=== PATIENT | male | born 2000 | race Caucasian/White ===

== ENCOUNTER 2020-01-12 20:52 | Inpatient (IN) | payer OTHER ==
[~2020-01-12] VITALS: Ht 172.7 cm; Wt 65.9 kg
[2020-01-12] MEDS ORDERED: PERCT PO (21:07)
[2020-01-12] MEDS ORDERED: GABA-531 PO (21:07)
[2020-01-12] MEDS ORDERED: VORI200 PO (21:07)
[2020-01-12] MEDS ORDERED: AMOX-429 PO (21:07)
[2020-01-12 23:04] LABS: BASOPHILS % (AUTO) 0.7 % (0.0-2.0); EOSINOPHILS % (AUTO) 1.5 % (1.0-6.0); HEMATOCRIT 23.6 % (41-53); HEMOGLOBIN 8.1 g/dL (13.5-17.5); LYMPHOCYTES # (AUTO) 1.5 K/uL (1.0-4.8); LYMPHOCYTES % (AUTO) 23.1 % (22.0-44.0); MEAN CORPUSCULAR HGB CONC 34.2 G/dL (31.0-37.0); MEAN CORPUSCULAR VOLUME 91 fL (80-100); MONOCYTES # (AUTO) 0.8 K/uL (0.1-1.0); MONOCYTES % (AUTO) 12.1 % (2.0-9.0); NEUTROPHILS % (AUTO) 62.6 % (40.0-70.0); PLATELET COUNT (AUTO) 353 K/uL (150-450); RED BLOOD CELL COUNT(AUTO) 2.61 MIL/uL (4.50-5.90); RED CELL DISTRIBUTION WIDTH 14.2 % (11.5-14.5)
[2020-01-12 23:11] LABS: ANION GAP 9 mmol/L (8-16); CALCIUM, TOTAL 8.9 mg/dL (8.8-10.5); CARBON DIOXIDE 26 mmol/L (22-29); CHLORIDE 102 mmol/L (98-107); CREATININE 0.97 mg/dL (0.60-1.30); GLOMERULAR FILTR. RATE CALC > 60 mL/min (>60); GLUCOSE,RANDOM 100 mg/dL (70-110); POTASSIUM 3.9 mmol/L (3.5-5.1); SODIUM SERUM 137 mmol/L (136-145); UREA NITROGEN, BLOOD 18 mg/dL (7-18)
[2020-01-12] MEDS ORDERED: OxyCODONE HCL/ACETAMINOPHEN 5-325 MG TABLET PO ONE (23:15)
[2020-01-12] MEDS ORDERED: ONDANSETRON HCL 4 MG/2 ML VIAL IVP PRN ×2 (23:15→23:30)
[2020-01-12] MEDS ORDERED: GABAPENTIN 100 MG CAPSULE PO ONE (23:15)
[2020-01-12] MEDS ORDERED: AMOX TR/POT CLAV 875 MG/125 MG TABLET PO ONE (23:15)
[2020-01-12] MEDS ORDERED: VORICONAZOLE 200 MG TABLET PO ONE (23:15)
[2020-01-12] MEDS ORDERED: 0.9% SODIUM CHLORIDE 10 ML SYRINGE IVP PRN ×2 (23:15→23:30)
[2020-01-12] MEDS ORDERED: ACETAMINOPHEN 325 MG TABLET PO PRN ×2 (23:15→23:30)
[2020-01-12] MEDS ORDERED: MAGNESIUM SULFATE 2 GM/WATER 50 ML IV PRN (23:30)
[2020-01-12] MEDS ORDERED: MAGNESIUM SULFATE 4 GM/WATER 100 ML IV PRN (23:30)
[2020-01-12] MEDS ORDERED: POTASSIUM CHL 10 MEQ/WATER 50 ML IV PRN (23:30)
[2020-01-12] MEDS ORDERED: POTASSIUM CHLORIDE 20 MEQ ER TABLET PO PRN (23:30)
[2020-01-12] MEDS ORDERED: MAGNESIUM OXIDE 400 MG TABLET PO PRN (23:30)
[2020-01-13] MEDS: ZOLPIDEM TARTRATE 5 MG TABLET PO PRN ×2 (00:03→20:03)
[2020-01-13] MEDS: HEPARIN SODIUM,PORCINE 5,000 UNITS/ML VIAL SQ SCH ×3 (00:05→16:03)
[2020-01-13 00:17] VITALS: BP 114/83
[2020-01-13] MEDS ORDERED: INFLUENZA VIRUS VACCINE QVS 2019-20 (3YR+)/PF 60 MCG/0.5 ML SYRINGE IM ONE (01:15)
[2020-01-13 05:01] VITALS: BP 120/81
[2020-01-13 07:40] VITALS: BP 119/71
[2020-01-13 08:07] LABS: BASOPHILS % (AUTO) 0.7 % (0.0-2.0); EOSINOPHILS % (AUTO) 1.5 % (1.0-6.0); HEMATOCRIT 25.7 % (41-53); HEMOGLOBIN 8.7 g/dL (13.5-17.5); LYMPHOCYTES # (AUTO) 1.4 K/uL (1.0-4.8); MEAN CORPUSCULAR HEMOGLOBIN 30.6 pg (26.0-34.0); MEAN CORPUSCULAR HGB CONC 33.8 G/dL (31.0-37.0); MEAN CORPUSCULAR VOLUME 91 fL (80-100); MONOCYTES # (AUTO) 0.7 K/uL (0.1-1.0); MONOCYTES % (AUTO) 11.7 % (2.0-9.0); NEUTROPHILS # (AUTO) 4.1 K/uL (1.8-7.7); NEUTROPHILS % (AUTO) 64.1 % (40.0-70.0); PLATELET COUNT (AUTO) 389 K/uL (150-450); RED BLOOD CELL COUNT(AUTO) 2.83 MIL/uL (4.50-5.90); RED CELL DISTRIBUTION WIDTH 14.3 % (11.5-14.5)
[2020-01-13] MEDS: PANTOPRAZOLE SODIUM 40 MG DR TABLET PO SCH (08:24)
[2020-01-13] MEDS: DOCUSATE SODIUM 100 MG CAPSULE PO SCH ×2 (08:24→20:03)
[2020-01-13 08:30] LABS: ANION GAP 9 mmol/L (8-16); CALCIUM, TOTAL 9.3 mg/dL (8.8-10.5); CARBON DIOXIDE 26 mmol/L (22-29); CHLORIDE 103 mmol/L (98-107); CREATININE 1.01 mg/dL (0.60-1.30); GLOMERULAR FILTR. RATE CALC > 60 mL/min (>60); GLUCOSE,RANDOM 101 mg/dL (70-110); POTASSIUM 3.8 mmol/L (3.5-5.1); SODIUM SERUM 138 mmol/L (136-145); UREA NITROGEN, BLOOD 14 mg/dL (7-18)
[2020-01-13 15:20] VITALS: BP 118/62
[2020-01-13 19:48] VITALS: BP 130/93
[2020-01-13] MEDS ORDERED: HALOPERIDOL LACTATE 5 MG/ML VIAL IM PRN (22:30)
[2020-01-13] MEDS ORDERED: LORazepam 2 MG/ML VIAL IM ONE (22:45)
[2020-01-13] MEDS ORDERED: DiphenhydrAMINE HCL 50 MG/ML VIAL IM ONE (22:45)
[2020-01-13] MEDS ORDERED: HALOPERIDOL 5 MG TABLET PO PRN (22:45)
[2020-01-13] MEDS ORDERED: HALOPERIDOL LACTATE 5 MG/ML VIAL IM ONE (22:45)
[2020-01-13 22:50] LABS: ALBUMIN 2.9 g/dL (3.4-5.0)
[2020-01-14] MEDS: PANTOPRAZOLE SODIUM 40 MG DR TABLET PO SCH (08:02)
[2020-01-14] MEDS: DOCUSATE SODIUM 100 MG CAPSULE PO SCH (08:02)
[2020-01-14] MEDS: HEPARIN SODIUM,PORCINE 5,000 UNITS/ML VIAL SQ SCH ×3 (08:03→16:00)
[2020-01-14] MEDS ORDERED: MULTIVITAMINS WITH MINERALS, THERAPEUTIC TABLET PO SCH (09:00)
== END 2020-01-14 20:50 | DRG 159 ==
LOC: EMS 20:55 → 6S 23:00
PROVIDERS: ADMIT Internal Medicine; ATTEND Internal Medicine
DX: S02.66XA Fracture of symphysis of mandible, initial encounter for closed fracture (principal); S62.101A Fracture of unspecified carpal bone, right wrist, initial encounter for closed fracture; G89.18 Other acute postprocedural pain; R63.3 Feeding difficulties; R62.7 Adult failure to thrive; F17.210 Nicotine dependence, cigarettes, uncomplicated; F43.21 Adjustment disorder with depressed mood; F12.90 Cannabis use, unspecified, uncomplicated; Z79.899 Other long term (current) drug therapy; Z68.22 Body mass index [BMI] 22.0-22.9, adult; Y08.89XA Assault by other specified means, initial encounter; Y93.89 Activity, other specified; Y92.89 Other specified places as the place of occurrence of the external cause; Y99.8 Other external cause status
CPT/HCPCS: 70486; 83735; J1200; J1630; J1644; J2060

== ENCOUNTER 2020-01-15 12:54 | Inpatient (IN) | payer OTHER ==
[~2020-01-15] VITALS: Ht 167.6 cm; Wt 59.1 kg
[~2020-01-15 12:54] MED LIST: AMOX-429 PO; GABA-531 PO; PERCT PO; VORI200 PO
[2020-01-15] MEDS ORDERED: HALOPERIDOL LACTATE 5 MG/ML VIAL IM ONE ×2 (15:00→17:30)
[2020-01-15] MEDS ORDERED: ACETAMINOPHEN 325 MG TABLET PO PRN (15:15)
[2020-01-15] MEDS ORDERED: 0.9% SODIUM CHLORIDE 10 ML SYRINGE IVP PRN (15:15)
[2020-01-15 15:24] LABS: BASOPHILS % (AUTO) 0.8 % (0.0-2.0); EOSINOPHILS % (AUTO) 1.4 % (1.0-6.0); HEMATOCRIT 25.6 % (41-53); HEMOGLOBIN 8.8 g/dL (13.5-17.5); LYMPHOCYTES # (AUTO) 1.5 K/uL (1.0-4.8); LYMPHOCYTES % (AUTO) 24.5 % (22.0-44.0); MEAN CORPUSCULAR HEMOGLOBIN 30.8 pg (26.0-34.0); MEAN CORPUSCULAR HGB CONC 34.2 G/dL (31.0-37.0); MEAN CORPUSCULAR VOLUME 90 fL (80-100); MONOCYTES # (AUTO) 0.8 K/uL (0.1-1.0); MONOCYTES % (AUTO) 12.4 % (2.0-9.0); NEUTROPHILS # (AUTO) 3.7 K/uL (1.8-7.7); NEUTROPHILS % (AUTO) 60.9 % (40.0-70.0); PLATELET COUNT (AUTO) 400 K/uL (150-450); RED BLOOD CELL COUNT(AUTO) 2.84 MIL/uL (4.50-5.90); RED CELL DISTRIBUTION WIDTH 14.4 % (11.5-14.5)
[2020-01-15] MEDS ORDERED: HALOPERIDOL LACTATE 5 MG/ML VIAL IM PRN (15:30)
[2020-01-15 15:36] LABS: ANION GAP 12 mmol/L (8-16); CALCIUM, TOTAL 8.8 mg/dL (8.8-10.5); CARBON DIOXIDE 24 mmol/L (22-29); CHLORIDE 99 mmol/L (98-107); CREATININE 1.15 mg/dL (0.60-1.30); GLOMERULAR FILTR. RATE CALC > 60 mL/min (>60); GLUCOSE,RANDOM 85 mg/dL (70-110); POTASSIUM 3.7 mmol/L (3.5-5.1); SODIUM SERUM 135 mmol/L (136-145); UREA NITROGEN, BLOOD 20 mg/dL (7-18)
[2020-01-15 15:50] LABS: ALANINE AMINOTRANSFERASE 74 U/L (12-78); ALBUMIN 3.2 g/dL (3.4-5.0); ALKALINE PHOSPHATASE 96 U/L (46-116); ASPARTATE AMINOTRANSFERASE 97 U/L (15-37); BILIRUBIN,TOTAL 0.5 mg/dL (0.1-1.0); TOTAL PROTEIN, SERUM 7.6 g/dL (6.4-8.2)
[2020-01-15] MEDS ORDERED: LORazepam 2 MG/ML VIAL IM ONE (17:30)
[2020-01-15] MEDS ORDERED: LORazepam 2 MG/ML VIAL ONE (17:30)
[2020-01-15] MEDS ORDERED: DiphenhydrAMINE HCL 50 MG/ML VIAL IM ONE (17:30)
[2020-01-15] MEDS ORDERED: DiphenhydrAMINE HCL 50 MG/ML VIAL ONE (17:30)
[2020-01-15] MEDS: FERROUS SULFATE 325 MG EC TABLET PO SCH (18:00)
[2020-01-15] MEDS ORDERED: AMOX TR/POT CLAV 500 MG/125 MG TABLET PO SCH (21:00)
[2020-01-15] MEDS: AMOX TR/POT CLAV 875 MG/125 MG TABLET PO SCH (22:01)
[2020-01-15] MEDS: DOCUSATE SODIUM 100 MG CAPSULE PO SCH (22:01)
[2020-01-15] MEDS: VORICONAZOLE 200 MG TABLET PO SCH (22:01)
[2020-01-16] MEDS ORDERED: HALOPERIDOL LACTATE 5 MG/ML VIAL IM ONE ×2 (08:00→14:00)
[2020-01-16] MEDS ORDERED: LORazepam 2 MG/ML VIAL IM ONE ×2 (08:00→14:15)
[2020-01-16] MEDS ORDERED: DiphenhydrAMINE HCL 50 MG/ML VIAL IM ONE ×2 (08:00→14:00)
[2020-01-16] MEDS: AMOX TR/POT CLAV 875 MG/125 MG TABLET PO SCH ×2 (08:18→21:20)
[2020-01-16] MEDS: VORICONAZOLE 200 MG TABLET PO SCH ×2 (08:19→21:20)
[2020-01-16] MEDS: FAMOTIDINE 20 MG TABLET PO SCH (08:19)
[2020-01-16] MEDS: FERROUS SULFATE 325 MG EC TABLET PO SCH ×2 (08:19→17:03)
[2020-01-16] MEDS: MULTIVITAMINS WITH MINERALS, THERAPEUTIC TABLET PO SCH (08:19)
[2020-01-16] MEDS: DOCUSATE SODIUM 100 MG CAPSULE PO SCH ×2 (08:19→21:20)
[2020-01-16] MEDS: OxyCODONE HCL/ACETAMINOPHEN 5-325 MG TABLET PO PRN ×2 (13:22→23:23)
[2020-01-16] MEDS: RisperiDONE 2 MG TABLET PO SCH ×2 (13:22→21:21)
[2020-01-16] MEDS ORDERED: LORazepam 2 MG/ML VIAL IVP ONE (14:00)
[2020-01-16] MEDS ORDERED: SODIUM CHLORIDE 0.9% IRRIG BTL 1,000 ML IRRIG ONE (14:01)
[2020-01-16] MEDS: GABAPENTIN 300 MG CAPSULE PO SCH ×2 (17:03→21:20)
[2020-01-16 19:42] VITALS: BP 121/68
[2020-01-17 06:06] VITALS: BP 141/66
[2020-01-17] MEDS: OxyCODONE HCL/ACETAMINOPHEN 5-325 MG TABLET PO PRN ×2 (06:18→10:03)
[2020-01-17 07:41] VITALS: BP 117/59
[2020-01-17] MEDS: AMOX TR/POT CLAV 875 MG/125 MG TABLET PO SCH ×2 (08:14→20:34)
[2020-01-17] MEDS: FAMOTIDINE 20 MG TABLET PO SCH (08:14)
[2020-01-17] MEDS: VORICONAZOLE 200 MG TABLET PO SCH ×2 (08:14→20:34)
[2020-01-17] MEDS: FERROUS SULFATE 325 MG EC TABLET PO SCH ×2 (08:14→17:07)
[2020-01-17] MEDS: DOCUSATE SODIUM 100 MG CAPSULE PO SCH ×2 (08:15→20:34)
[2020-01-17] MEDS: RisperiDONE 2 MG TABLET PO SCH ×2 (08:15→20:34)
[2020-01-17] MEDS: GABAPENTIN 300 MG CAPSULE PO SCH ×3 (08:15→20:34)
[2020-01-17] MEDS: MULTIVITAMINS WITH MINERALS, THERAPEUTIC TABLET PO SCH (08:15)
[2020-01-17] MEDS: HydrOXYzine PAMOATE 50 MG CAPSULE PO PRN (10:03)
[2020-01-17] MEDS: HALOPERIDOL 5 MG TABLET PO PRN (10:03)
[2020-01-17 10:26] LABS: BASOPHILS % (AUTO) 0.6 % (0.0-2.0); HEMATOCRIT 28.9 % (41-53); HEMOGLOBIN 9.9 g/dL (13.5-17.5); LYMPHOCYTES # (AUTO) 1.8 K/uL (1.0-4.8); LYMPHOCYTES % (AUTO) 38.3 % (22.0-44.0); MEAN CORPUSCULAR HEMOGLOBIN 31.2 pg (26.0-34.0); MEAN CORPUSCULAR HGB CONC 34.4 G/dL (31.0-37.0); MEAN CORPUSCULAR VOLUME 91 fL (80-100); MONOCYTES # (AUTO) 0.6 K/uL (0.1-1.0); MONOCYTES % (AUTO) 12.1 % (2.0-9.0); PLATELET COUNT (AUTO) 411 K/uL (150-450); RED BLOOD CELL COUNT(AUTO) 3.18 MIL/uL (4.50-5.90); RED CELL DISTRIBUTION WIDTH 14.8 % (11.5-14.5)
[2020-01-17 10:34] LABS: ANION GAP 8 mmol/L (8-16); CALCIUM, TOTAL 9.4 mg/dL (8.8-10.5); CARBON DIOXIDE 29 mmol/L (22-29); CHLORIDE 99 mmol/L (98-107); CREATININE 1.05 mg/dL (0.60-1.30); GLOMERULAR FILTR. RATE CALC > 60 mL/min (>60); GLUCOSE,RANDOM 106 mg/dL (70-110); POTASSIUM 3.9 mmol/L (3.5-5.1); SODIUM SERUM 136 mmol/L (136-145); UREA NITROGEN, BLOOD 11 mg/dL (7-18)
[2020-01-17] MEDS ORDERED: DiphenhydrAMINE HCL 50 MG/ML VIAL IM ONE (15:30)
[2020-01-17] MEDS ORDERED: LORazepam 2 MG/ML VIAL IM ONE (15:30)
[2020-01-17 16:07] VITALS: BP 125/60
[2020-01-17 21:03] VITALS: BP 149/75
[2020-01-18 06:38] VITALS: BP 120/93
[2020-01-18] MEDS: OxyCODONE HCL/ACETAMINOPHEN 5-325 MG TABLET PO PRN ×2 (06:46→23:10)
[2020-01-18 07:56] VITALS: BP 105/54
[2020-01-18] MEDS: AMOX TR/POT CLAV 875 MG/125 MG TABLET PO SCH ×2 (08:18→21:59)
[2020-01-18] MEDS: VORICONAZOLE 200 MG TABLET PO SCH ×2 (08:18→21:59)
[2020-01-18] MEDS: RisperiDONE 2 MG TABLET PO SCH ×2 (08:18→21:59)
[2020-01-18] MEDS: FAMOTIDINE 20 MG TABLET PO SCH (08:18)
[2020-01-18] MEDS: DOCUSATE SODIUM 100 MG CAPSULE PO SCH ×2 (08:18→21:59)
[2020-01-18] MEDS: FERROUS SULFATE 325 MG EC TABLET PO SCH ×2 (08:18→17:42)
[2020-01-18] MEDS: GABAPENTIN 300 MG CAPSULE PO SCH ×3 (08:18→21:59)
[2020-01-18] MEDS: MULTIVITAMINS WITH MINERALS, THERAPEUTIC TABLET PO SCH (08:18)
[2020-01-18] MEDS: HALOPERIDOL 5 MG TABLET PO PRN ×2 (08:21→23:37)
[2020-01-18] MEDS: HydrOXYzine PAMOATE 50 MG CAPSULE PO PRN (14:27)
[2020-01-18] MEDS: ACETAMINOPHEN 325 MG TABLET PO PRN (14:30)
[2020-01-19] MEDS: HydrOXYzine PAMOATE 50 MG CAPSULE PO PRN ×2 (00:21→13:34)
[2020-01-19] MEDS ORDERED: SODIUM CL IRRIG SOLN BOTTLE 250 ML IRRIG ONE (00:28)
[2020-01-19] MEDS: ACETAMINOPHEN 325 MG TABLET PO PRN ×2 (00:51→20:24)
[2020-01-19 05:56] VITALS: BP 138/78
[2020-01-19 07:25] VITALS: BP 155/98
[2020-01-19] MEDS: GABAPENTIN 300 MG CAPSULE PO SCH ×3 (08:51→19:37)
[2020-01-19] MEDS: DOCUSATE SODIUM 100 MG CAPSULE PO SCH ×2 (08:52→20:24)
[2020-01-19] MEDS: OxyCODONE HCL/ACETAMINOPHEN 5-325 MG TABLET PO PRN ×3 (08:52→19:36)
[2020-01-19] MEDS: MULTIVITAMINS WITH MINERALS, THERAPEUTIC TABLET PO SCH (08:52)
[2020-01-19] MEDS: HALOPERIDOL 5 MG TABLET PO PRN ×2 (08:52→19:36)
[2020-01-19] MEDS: FERROUS SULFATE 325 MG EC TABLET PO SCH ×3 (08:52→19:37)
[2020-01-19] MEDS: FAMOTIDINE 20 MG TABLET PO SCH (08:52)
[2020-01-19] MEDS: VORICONAZOLE 200 MG TABLET PO SCH ×2 (08:54→20:24)
[2020-01-19] MEDS: AMOX TR/POT CLAV 875 MG/125 MG TABLET PO SCH ×2 (08:54→20:24)
[2020-01-19] MEDS: RisperiDONE 2 MG TABLET PO SCH ×2 (08:54→20:24)
[2020-01-19 15:00] VITALS: BP 140/76
[2020-01-19 20:35] VITALS: BP 122/62
[2020-01-20] MEDS: HydrOXYzine PAMOATE 50 MG CAPSULE PO PRN ×3 (00:16→23:16)
[2020-01-20] MEDS: HALOPERIDOL 5 MG TABLET PO PRN ×2 (00:16→13:53)
[2020-01-20] MEDS: GABAPENTIN 300 MG CAPSULE PO SCH ×4 (00:17→20:48)
[2020-01-20] MEDS: DOCUSATE SODIUM 100 MG CAPSULE PO SCH ×2 (08:15→20:48)
[2020-01-20 08:16] VITALS: BP 120/79
[2020-01-20] MEDS: FERROUS SULFATE 325 MG EC TABLET PO SCH ×2 (08:16→17:55)
[2020-01-20] MEDS: FAMOTIDINE 20 MG TABLET PO SCH (08:16)
[2020-01-20] MEDS: AMOX TR/POT CLAV 875 MG/125 MG TABLET PO SCH ×2 (08:16→20:48)
[2020-01-20] MEDS: VORICONAZOLE 200 MG TABLET PO SCH ×2 (08:16→20:48)
[2020-01-20] MEDS: OxyCODONE HCL/ACETAMINOPHEN 5-325 MG TABLET PO PRN ×4 (08:16→23:16)
[2020-01-20] MEDS: MULTIVITAMINS WITH MINERALS, THERAPEUTIC TABLET PO SCH (08:16)
[2020-01-20] MEDS: RisperiDONE 2 MG TABLET PO SCH ×2 (08:16→20:48)
[2020-01-20] MEDS: MAGNESIUM HYDROXIDE SUSPENSION 30 ML UDCUP PO PRN (15:18)
[2020-01-20 15:26] VITALS: BP 123/73
[2020-01-20 21:00] VITALS: BP 121/84
[2020-01-21] MEDS: HALOPERIDOL 5 MG TABLET PO PRN ×2 (00:17→22:31)
[2020-01-21] MEDS: MAGNESIUM HYDROXIDE SUSPENSION 30 ML UDCUP PO PRN ×3 (00:38→22:59)
[2020-01-21] MEDS: DOCUSATE SODIUM 100 MG CAPSULE PO SCH ×2 (09:54→19:45)
[2020-01-21] MEDS: RisperiDONE 2 MG TABLET PO SCH ×2 (09:55→19:45)
[2020-01-21] MEDS: MULTIVITAMINS WITH MINERALS, THERAPEUTIC TABLET PO SCH (09:55)
[2020-01-21] MEDS: FAMOTIDINE 20 MG TABLET PO SCH (09:55)
[2020-01-21] MEDS: GABAPENTIN 300 MG CAPSULE PO SCH ×3 (09:55→19:45)
[2020-01-21] MEDS: VORICONAZOLE 200 MG TABLET PO SCH ×2 (09:55→19:45)
[2020-01-21] MEDS: FERROUS SULFATE 325 MG EC TABLET PO SCH ×2 (09:55→16:48)
[2020-01-21] MEDS: AMOX TR/POT CLAV 875 MG/125 MG TABLET PO SCH ×2 (09:55→19:45)
[2020-01-21] MEDS: OxyCODONE HCL/ACETAMINOPHEN 5-325 MG TABLET PO PRN ×2 (09:56→16:52)
[2020-01-21 10:40] VITALS: BP 117/76
[2020-01-21] MEDS ORDERED: BISACODYL 10 MG RECTAL RECTAL SUPPOSITORY PR ONE (13:00)
[2020-01-21] MEDS: HydrOXYzine PAMOATE 50 MG CAPSULE PO PRN ×2 (13:13→22:32)
[2020-01-21 16:00] VITALS: BP 118/60
[2020-01-21 19:52] VITALS: BP 129/86
[2020-01-22 06:43] VITALS: BP 126/74
[2020-01-22] MEDS: FERROUS SULFATE 325 MG EC TABLET PO SCH ×2 (11:13→17:41)
[2020-01-22] MEDS: DOCUSATE SODIUM 100 MG CAPSULE PO SCH ×2 (11:13→19:50)
[2020-01-22] MEDS: AMOX TR/POT CLAV 875 MG/125 MG TABLET PO SCH ×2 (11:13→19:50)
[2020-01-22] MEDS: MULTIVITAMINS WITH MINERALS, THERAPEUTIC TABLET PO SCH (11:14)
[2020-01-22] MEDS: VORICONAZOLE 200 MG TABLET PO SCH ×2 (11:14→19:50)
[2020-01-22] MEDS: FAMOTIDINE 20 MG TABLET PO SCH (11:14)
[2020-01-22] MEDS: GABAPENTIN 300 MG CAPSULE PO SCH ×3 (11:14→19:50)
[2020-01-22] MEDS: RisperiDONE 2 MG TABLET PO SCH ×2 (11:14→19:50)
[2020-01-22] MEDS: HALOPERIDOL 5 MG TABLET PO PRN (12:19)
[2020-01-22] MEDS: HydrOXYzine PAMOATE 50 MG CAPSULE PO PRN (19:50)
[2020-01-22 19:59] VITALS: BP 117/63
[2020-01-23 05:51] VITALS: BP 146/58
[2020-01-23] MEDS: OxyCODONE HCL/ACETAMINOPHEN 5-325 MG TABLET PO PRN ×3 (06:05→20:22)
[2020-01-23 07:11] LABS: ANION GAP 9 mmol/L (8-16); BASOPHILS % (AUTO) 0.6 % (0.0-2.0); CALCIUM, TOTAL 9.6 mg/dL (8.8-10.5); CARBON DIOXIDE 29 mmol/L (22-29); CHLORIDE 103 mmol/L (98-107); CREATININE 1.02 mg/dL (0.60-1.30); EOSINOPHILS % (AUTO) 3.6 % (1.0-6.0); GLOMERULAR FILTR. RATE CALC > 60 mL/min (>60); GLUCOSE,RANDOM 98 mg/dL (70-110); HEMATOCRIT 31.7 % (41-53); HEMOGLOBIN 10.6 g/dL (13.5-17.5); LYMPHOCYTES # (AUTO) 1.3 K/uL (1.0-4.8); LYMPHOCYTES % (AUTO) 28.9 % (22.0-44.0); MEAN CORPUSCULAR HEMOGLOBIN 30.1 pg (26.0-34.0); MEAN CORPUSCULAR HGB CONC 33.4 G/dL (31.0-37.0); MEAN CORPUSCULAR VOLUME 90 fL (80-100); MONOCYTES # (AUTO) 0.5 K/uL (0.1-1.0); MONOCYTES % (AUTO) 11.2 % (2.0-9.0); NEUTROPHILS # (AUTO) 2.4 K/uL (1.8-7.7); NEUTROPHILS % (AUTO) 55.7 % (40.0-70.0); PLATELET COUNT (AUTO) 355 K/uL (150-450); POTASSIUM 3.9 mmol/L (3.5-5.1); RED BLOOD CELL COUNT(AUTO) 3.52 MIL/uL (4.50-5.90); RED CELL DISTRIBUTION WIDTH 14.8 % (11.5-14.5); SODIUM SERUM 141 mmol/L (136-145); UREA NITROGEN, BLOOD 12 mg/dL (7-18)
[2020-01-23] MEDS: FERROUS SULFATE 325 MG EC TABLET PO SCH ×2 (08:00→18:00)
[2020-01-23] MEDS: AMOX TR/POT CLAV 875 MG/125 MG TABLET PO SCH ×2 (08:21→20:21)
[2020-01-23] MEDS: GABAPENTIN 300 MG CAPSULE PO SCH ×3 (08:21→20:21)
[2020-01-23] MEDS: VORICONAZOLE 200 MG TABLET PO SCH ×2 (08:21→20:22)
[2020-01-23] MEDS: FAMOTIDINE 20 MG TABLET PO SCH (08:21)
[2020-01-23] MEDS: HALOPERIDOL 5 MG TABLET PO PRN ×2 (08:21→21:53)
[2020-01-23] MEDS: MULTIVITAMINS WITH MINERALS, THERAPEUTIC TABLET PO SCH (08:21)
[2020-01-23] MEDS: RisperiDONE 2 MG TABLET PO SCH ×2 (08:21→20:21)
[2020-01-23] MEDS: DOCUSATE SODIUM 100 MG CAPSULE PO SCH ×2 (08:32→21:00)
[2020-01-23 08:36] VITALS: BP 115/73
[2020-01-23 20:29] VITALS: BP 123/78
[2020-01-24 04:52] VITALS: BP 100/52
[2020-01-24] MEDS: OxyCODONE HCL/ACETAMINOPHEN 5-325 MG TABLET PO PRN ×2 (06:36→12:38)
[2020-01-24] MEDS: FERROUS SULFATE 325 MG EC TABLET PO SCH ×2 (08:00→18:00)
[2020-01-24] MEDS: DOCUSATE SODIUM 100 MG CAPSULE PO SCH (09:00)
[2020-01-24] MEDS: MULTIVITAMINS WITH MINERALS, THERAPEUTIC TABLET PO SCH (09:00)
[2020-01-24] MEDS: GABAPENTIN 300 MG CAPSULE PO SCH ×2 (09:48→16:08)
[2020-01-24] MEDS: AMOX TR/POT CLAV 875 MG/125 MG TABLET PO SCH (09:48)
[2020-01-24] MEDS: VORICONAZOLE 200 MG TABLET PO SCH (09:48)
[2020-01-24] MEDS: RisperiDONE 2 MG TABLET PO SCH (09:48)
[2020-01-24] MEDS: FAMOTIDINE 20 MG TABLET PO SCH (09:48)
[2020-01-24] MEDS: HALOPERIDOL 5 MG TABLET PO PRN (09:49)
[2020-01-24] MEDS ORDERED: DOCU-275 PO (13:49)
[2020-01-24] MEDS ORDERED: FERR-89 PO (13:50)
[2020-01-24] MEDS ORDERED: FAMO20 PO (13:50)
[2020-01-24] MEDS ORDERED: RISP2 PO (13:52)
[2020-01-24] MEDS ORDERED: MULT-1239 PO (13:52)
[2020-01-24] MEDS ORDERED: ACET-3207 PO (13:54)
[2020-01-24] MEDS ORDERED: HALO5TAB23 PO (13:56)
[2020-01-24] MEDS ORDERED: HYDR50CA9 PO (13:57)
== END 2020-01-24 20:45 | DRG 605 ==
LOC: EMS 12:57 → 6S 15:15
PROVIDERS: ADMIT Internal Medicine; ATTEND Internal Medicine
DX: S41.102A Unspecified open wound of left upper arm, initial encounter (principal); F23 Brief psychotic disorder; R45.851 Suicidal ideations; S41.101A Unspecified open wound of right upper arm, initial encounter; D64.9 Anemia, unspecified; F41.9 Anxiety disorder, unspecified; F29 Unspecified psychosis not due to a substance or known physiological condition; X58.XXXA Exposure to other specified factors, initial encounter; Y93.89 Activity, other specified; Y92.89 Other specified places as the place of occurrence of the external cause; Y99.8 Other external cause status; Z87.891 Personal history of nicotine dependence
CPT/HCPCS: G0480; J1200; J1630; J2060; J3230